=== PATIENT | male | born 1965 | race Caucasian/White ===

== ENCOUNTER 2017-04-15 22:25 | Inpatient (IN) | payer SELFPAY ==
[2017-04-15] MEDS ORDERED: Albuterol/Ipratropium 3.0-0.5 MG/3 ML Neb Soln NEB ONE (22:34)
[2017-04-15] MEDS ORDERED: Sodium Chloride 0.9% 2.5 ML Syringe FLUSH PRN ×2 (22:35)
[2017-04-15] MEDS ORDERED: Sodium Chloride 0.9% 10 ML Syringe FLUSH PRN (22:35)
--- NOTE | 2017-04-15 22:36 | EDM.PDOC ---
ED HPI GENERAL MEDICAL PROBLEM - General Chief Complaint: Respiratory Problem Stated Complaint: RESPIRATORY DISTRESS Time Seen by Provider: 04/15/17 22:33 - History of Present Illness INITIAL COMMENTS - FREE TEXT/NARRATIVE: HISTORY AND PHYSICAL: History of present illness: Patient is 51-year-old white male with history of COPD who is continues to smoke or sensory concern shortness of breath and wheezing worse over last 24 hours he denies chest pain nausea vomiting fever chills or other complaints. Review of systems: As per history of present illness and below otherwise all systems reviewed and negative. Past medical history: As per history of present illness and as reviewed below otherwise noncontributory. Surgical history: As per history of present illness and as reviewed below otherwise noncontributory. Social history: No reported history of drug or alcohol abuse. Family history: As per history of present illness and as reviewed below otherwise noncontributory. Physical exam: HEENT: Atraumatic, normocephalic, pupils reactive, negative for conjunctival pallor or scleral icterus, mucous membranes moist, throat clear, neck supple, nontender, trachea midline. Lungs: Scattered inspiratory and expiratory wheezing coarse breath sounds no crackles, breath sounds equal bilaterally, chest nontender. Heart: S1S2, regular, negative for clicks, rubs, or JVD. Abdomen: Soft, nondistended, nontender. Negative for masses or hepatosplenomegaly. Negative for costovertebral tenderness. Pelvis: Stable nontender. Genitourinary: Deferred. Rectal: Deferred. Extremities: Atraumatic, negative for cords or calf pain. Neurovascular unremarkable. Neuro: Awake, alert, oriented. Cranial nerves II through XII unremarkable. Cerebellum unremarkable. Motor and sensory unremarkable throughout. Exam nonfocal. Diagnostics: CBC CMP troponin PT/INR ABG chest x-ray EKG Therapeutics: O2 IV monitor albuterol ipratropium nebulizer Solu-Medrol 125 mg IV Impression: #1 COPD with acute exacerbation #2 medical noncompliance Definitive disposition and diagnosis as appropriate pending reevaluation and review of above. - Related Data Allergies Allergy/AdvReac Type Severity Reaction Status Date / Time cephalexin Allergy Hives Verified 04/15/17 22:33 Penicillins Allergy Hives Verified 04/15/17 22:33 Home Meds: Home Meds ClonazePAM [KlonoPIN] 0 mg PO BID 04/15/17 [History] ED ROS GENERAL - Review of Systems Review Of Systems: ROS reveals no pertinent complaints other than HPI. ED EXAM, GENERAL - Physical Exam Exam: See Below (See dictation) Course - Vital Signs Last Recorded V/S: Last Vital Signs Temp 36.6 C 04/15/17 22:25 Pulse 116 H 04/15/17 22:25 Resp 36 H 04/15/17 22:25 BP 144/99 H 04/15/17 22:25 Pulse Ox 97 04/15/17 22:25 - Orders/Labs/Meds Orders: Active Orders 24 hr Category Date Time Status EKG Documentation Completion [RC] STAT Care 04/15/17 22:35 Active RT Aerosol Therapy [RC] ASDIRECTED Care 04/15/17 22:34 Active Chest 1V Frontal [CR] Stat Exams 04/15/17 22:35 Ordered Sodium Chloride 0.9% [Saline Flush] Med 04/15/17 22:35 Active 10 ml FLUSH ASDIRECTED PRN Sodium Chloride 0.9% [Saline Flush] Med 04/15/17 22:35 Active 2.5 ml FLUSH ASDIRECTED PRN Saline Lock Insert [OM.PC] Stat Oth 04/15/17 22:35 Ordered Medication Orders Sodium Chloride (Saline Flush) 2.5 ml FLUSH ASDIRECTED PRN PRN Reason: Keep Vein Open Sodium Chloride (Saline Flush) 10 ml FLUSH ASDIRECTED PRN PRN Reason: Keep Vein Open Labs: Laboratory Tests 04/15/17 04/15/17 04/15/17 Range/Units 22:30 22:30 22:30 WBC 9.75 (4.0-11.0) K/uL RBC 5.35 (4.50-5.90) M/uL Hgb 15.7 (13.0-17.0) g/dL Hct 46.4 (38.0-50.0) % MCV 86.7 (80.0-98.0) fL MCH 29.3 (27.0-32.0) pg MCHC 33.8 (31.0-37.0) g/dL RDW Std Deviation 43.2 (28.0-62.0) fl RDW Coeff of Enoc 14 (11.0-15.0) % Plt Count 200 (150-400) K/uL MPV 10.00 (7.40-12.00) fL Neut % (Auto) 60.3 (48.0-80.0) % Lymph % (Auto) 27.8 (16.0-40.0) % [place] % (Auto) 7.3 (0.0-15.0) % Eos % (Auto) 4.0 (0.0-7.0) % Baso % (Auto) 0.6 (0.0-1.5) % Neut # (Auto) 5.9 H (1.4-5.7) K/uL Lymph # (Auto) 2.7 H (0.6-2.4) K/uL [place] # (Auto) 0.7 (0.0-0.8) K/uL Eos # (Auto) 0.4 (0.0-0.7) K/uL Baso # (Auto) 0.1 (0.0-0.1) K/uL Nucleated RBC % 0.0 /100WBC Nucleated RBCs # 0 K/uL INR 1.05 (0.86-1.11) ABG pH (7.35-7.45) ABG pCO2 (35-45) mmHG ABG pO2 (75-100) mmHG ABG HCO3 (22-26) mEq/L ABG Total CO2 ABG Base Excess (-2.0-2.0) Sodium 138 (136-146) mmol/L Potassium 3.7 (3.5-5.1) mmol/L Chloride 106 (98-110) mmol/L Carbon Dioxide 22 (21-31) mmol/L BUN 13 (6.0-23.0) mg/dL Creatinine 0.9 (0.6-1.5) mg/dL Est Cr Clr Drug Dosing TNP Estimated GFR (MDRD) > 60.0 ml/min Glucose 114 H (60-110) mg/dL Calcium 10.4 (8.8-10.8) mg/dL Total Bilirubin 0.3 (0.1-1.5) mg/dL AST 20 (5-40) IU/L ALT 26 (8-54) IU/L Alkaline Phosphatase 126 (40-150) Creatine Kinase 110 (9-236) IU/L Troponin I < 0.10 (0.0-0.29) NG/ML Total Protein 7.3 (6.0-8.0) g/dL Albumin 4.1 (3.5-5.0) g/dL Globulin 3.2 (2.0-3.5) g/dL Albumin/Globulin Ratio 1.3 (1.3-2.8) 04/15/ Range/Units 23:05 WBC (4.0-11.0) K/uL RBC (4.50-5.90) M/uL Hgb (13.0-17.0) g/dL Hct (38.0-50.0) % MCV (80.0-98.0) fL MCH (27.0-32.0) pg MCHC (31.0-37.0) g/dL RDW Std Deviation (28.0-62.0) fl RDW Coeff of Enoc (11.0-15.0) % Plt Count (150-400) K/uL MPV (7.40-12.00) fL Neut % (Auto) (48.0-80.0) % Lymph % (Auto) (16.0-40.0) % [place] % (Auto) (0.0-15.0) % Eos % (Auto) (0.0-7.0) % Baso % (Auto) (0.0-1.5) % Neut # (Auto) (1.4-5.7) K/uL Lymph # (Auto) (0.6-2.4) K/uL [place] # (Auto) (0.0-0.8) K/uL Eos # (Auto) (0.0-0.7) K/uL Baso # (Auto) (0.0-0.1) K/uL Nucleated RBC % /100WBC Nucleated RBCs # K/uL INR (0.86-1.11) ABG pH 7.358 (7.35-7.45) ABG pCO2 43 (35-45) mmHG ABG pO2 108 H (75-100) mmHG ABG HCO3 24 (22-26) mEq/L ABG Total CO2 21.1 ABG Base Excess -1.6 (-2.0-2.0) Sodium (136-146) mmol/L Potassium (3.5-5.1) mmol/L Chloride (98-110) mmol/L Carbon Dioxide (21-31) mmol/L BUN (6.0-23.0) mg/dL Creatinine (0.6-1.5) mg/dL Est Cr Clr Drug Dosing Estimated GFR (MDRD) ml/min Glucose (60-110) mg/dL Calcium (8.8-10.8) mg/dL Total Bilirubin (0.1-1.5) mg/dL AST (5-40) IU/L ALT (8-54) IU/L Alkaline Phosphatase (40-150) Creatine Kinase (9-236) IU/L Troponin I (0.0-0.29) NG/ML Total Protein (6.0-8.0) g/dL Albumin (3.5-5.0) g/dL Globulin (2.0-3.5) g/dL Albumin/Globulin Ratio (1.3-2.8) Meds: Medications Generic Name Dose Route Start Last Admin Trade Name Freq PRN Reason Stop Dose Admin Sodium Chloride 2.5 ml 04/15/17 22:35 Saline Flush FLUSH ASDIRECTED PRN Keep Vein Open Sodium Chloride 10 ml 04/15/17 22:35 Saline Flush FLUSH ASDIRECTED PRN Keep Vein Open Discontinued Medications Generic Name Dose Route Start Last Admin Trade Name Freq PRN Reason Stop Dose Admin Albuterol/Ipratropium 3 ml 04/15/17 22:34 04/15/17 22:38 Duoneb 3.0-0.5 Mg/3 Ml NEB 04/15/17 22:35 3 ml ONETIME ONE Administration Methylprednisolone Sodium Succinate 125 mg 04/15/17 22:45 Solu-Medrol IV STAT COREY Methylprednisolone Sodium Succinate 125 mg 04/15/17 22:45 04/15/17 23:04 Solu-Medrol IV 04/15/17 22:46 125 mg NOW ONE Administration Sodium Chloride 2.5 ml 04/15/17 22:35 Saline Flush FLUSH ASDIRECTED PRN Keep Vein Open Departure - Departure Time of Disposition: 22:59 Disposition: Refer to Observation Condition: Good Clinical Impression: COPD with acute exacerbation - Discharge Information Referrals: PCP,None [Primary Care Provider] - Forms: ED Department Discharge - My Orders Last 24 Hours: My Active Orders 04/15/17 22:34 RT Aerosol Therapy [RC] ASDIRECTED 04/15/17 22:35 EKG Documentation Completion [RC] STAT Chest 1V Frontal [CR] Stat Sodium Chloride 0.9% [Saline Flush] 10 ml FLUSH ASDIRECTED PRN Sodium Chloride 0.9% [Saline Flush] 2.5 ml FLUSH ASDIRECTED PRN Saline Lock Insert [OM.PC] Stat - Assessment/Plan Last 24 Hours: My Active Orders 04/15/17 22:34 RT Aerosol Therapy [RC] ASDIRECTED 04/15/17 22:35 EKG Documentation Completion [RC] STAT Chest 1V Frontal [CR] Stat Sodium Chloride 0.9% [Saline Flush] 10 ml FLUSH ASDIRECTED PRN Sodium Chloride 0.9% [Saline Flush] 2.5 ml FLUSH ASDIRECTED PRN Saline Lock Insert [OM.PC] Stat
[2017-04-15] MEDS ORDERED: methylPREDNISolone Sodium Succinate 125 MG/2 ML SDV IV ONE (22:45)
[2017-04-15] MEDS ORDERED: methylPREDNISolone Sodium Succinate 1,000 MG/8 ML SDV IV SCH (22:45)
[2017-04-15 23:07] LABS: CHLORIDE,CL 106 mmol/L (98-110); SODIUM,NA 138 mmol/L (136-146)
[2017-04-16] MEDS: Albuterol/Ipratropium 3.0-0.5 MG/3 ML Neb Soln NEB SCH ×6 (00:49→21:49)
[2017-04-16] MEDS: Nicotine 14 MG/24 Hr Patch TRDERM SCH (03:21)
[2017-04-16] MEDS: methylPREDNISolone Sodium Succinate 125 MG/2 ML SDV IVPUSH SCH ×4 (05:06→23:37)
[2017-04-16 06:39] LABS: CHLORIDE,CL 108 mmol/L (98-110); SODIUM,NA 137 mmol/L (136-146)
[2017-04-16] MEDS ORDERED: FLU Vacc QS 2017-18 (36mos UP)/PF 60 MCG/0.5 ML Syringe IM ONE (06:45)
--- NOTE | 2017-04-16 07:52 | PCM.HP ---
H&P History of Present Illness - General Date of Service: 04/16/17 Admit Problem/Dx: Admission Diagnosis/Problem Admission Diagnosis/Problem COPD, Moderate chronic obstructive pulmonary disease Source of Information: Patient History Limitations: Reports: No Limitations - History of Present Illness Initial Comments - Free Text/Narative: This 51 year old male with pmh of tobacco use and COPD presented to the ED early this morning with worsening dyspnea. He reports this dyspnea started once the weather changed to be colder, but last day or so it worsened significantly. He denies fevers or chills, sore throat or sinus congestion. He reports "rattling in his chest" congestion, but unable to produce a sputum. No N/V, abdominal pain, chest pain or palpitations. No diarrhea or constipation and no black or bloody BMs. He reports some anxiety with SOB, and takes half tab Klonipin for this. He reports he has not received his influenza vaccine yet this year and obtianed pneumovax last year. His PCP is in [place], [place] and did at one time follow with a hand or machine paster, but hasn't in about 2 years, he has needed to arrange appointment with a new provider, but hasn't yet. He does continue to smoke about 1/2-1 ppd he did quit for some time and then restarted not to long ago. In the ED WBC 9,750, ABG WNL, BMP WNL, dyspneic and tachypneic at 30-35 RR with tachycardia in 115s. CXR reveals hyperinflated lungs likely COPD, hazy opacification of the lung bases with blunting of costophrenis sulci, possinle small pleural effusion, possible faint basilar infiltrate or bronchitis can not be excluded. He was treated with Duonebs, SOlumedrol. He was admitted for COPD exacerbation. Chest Pain Score (Numeric/FACES): 0 - Related Data Allergies/Adverse Reactions: Allergies Allergy/AdvReac Type Severity Reaction Status Date / Time cephalexin Allergy Hives Verified 04/15/17 22:33 Penicillins Allergy Hives Verified 04/15/17 22:33 Home Medications: Home Meds ClonazePAM [KlonoPIN] 0 mg PO BID 04/15/17 [History] Albuterol Sulfate 1 vial INH QID 04/16/17 [History] Budesonide/Formoterol [Symbicort 80-4.5 MCG] 1 puff INH BID 04/16/17 [History] Ipratropium/Albuterol Sulfate [Combivent Respimat Inhal [place]] 4 gm IH PRN 04/16 [History] Past Medical History - Past Health History Medical/Surgical History: Denies Medical/Surgical History Cardiovascular History: Denies: Afib, Blood Clots/VTE/DVT, CAD, High Cholesterol , Hypertension, NH Respiratory History: Reports: COPD Gastrointestinal History: Reports: None. Denies: Cholelithiasis, Diverticulosis , GERD, GI Bleed Genitourinary History: Reports: None. Denies: Acute Renal Failure, Chronic Renal Insuffiency Musculoskeletal History: Reports: None Neurological History: Denies: CVA, Migraines, TIA Psychiatric History: Reports: Anxiety (with dyspnea) Endocrine/Metabolic History: Denies: Diabetes, Type II - Infectious Disease History Infectious Disease History: Reports: Chicken Pox - Past Surgical History Respiratory Surgical History: Reports: None Dermatological Surgical History: Reports: Skin Graft Social & Family History - Family History Family Medical History: Noncontributory - Tobacco Use Smoking Status *Q: Current Every Day Smoker Years of Tobacco use: 30 Packs/Tins Daily: 1 Tobacco Use Comment: Patient voices quitting and starting up smoking again. Second Hand Smoke Exposure: No - Caffeine Use Caffeine Use: Reports: Soda - Recreational Drug Use Recreational Drug Use: No - Living Situation & Occupation Living situation: Reports: Other (Homes in [place], living here in [place] for work.) Occupation: Employed H&P Review of Systems - Review of Systems: Review Of Systems: See Below General: Reports: No Symptoms. Denies: Fever, Chills, Malaise HEENT: Reports: No Symptoms. Denies: Headaches, Sinus Congestion, Sore Throat, Vertigo, Visual Changes Pulmonary: Reports: Shortness of Breath, Wheezing. Denies: Cough, Sputum, Hemoptysis Cardiovascular: Reports: No Symptoms, Chest Pain. Denies: Dyspnea on Exertion, Orthopnea, Lightheadedness, Syncope Gastrointestinal: Reports: No Symptoms. Denies: Abdominal Pain, Black Stool, Bloody Stool, Nausea, Vomiting Genitourinary: Reports: No Symptoms. Denies: Dysuria, Frequency, Burning, Pain Musculoskeletal: Reports: No Symptoms Skin: Reports: No Symptoms Psychiatric: Reports: No Symptoms Neurological: Reports: No Symptoms Hematologic/Lymphatic: Reports: No Symptoms Immunologic: Reports: No Symptoms Exam - Exam Exam: See Below - Vital Signs Vital Signs: Last Vital Signs Temp 98 F 04/16/17 03:23 Pulse 89 04/16/17 03:23 Resp 18 04/16/17 03:23 BP 130/81 04/16/17 03:23 Pulse Ox 98 04/16/17 03:23 Weight: 66.4 kg - Exam Quality Assessment: Supplemental Oxygen, DVT Prophylaxis General: Alert, Oriented, Cooperative HEENT: Conjunctiva Clear, Mucosa Moist & [place], Nares Patent, Pupils Reactive Neck: Supple, Trachea Midline, 2 Lungs: Decreased Breath Sounds (bilateral bases, very tight sounding, no wheezing noted.). No: Normal Respiratory Effort (tachypnea noted, he reports feeling better.), Wheezing Cardiovascular: Regular Rate, Regular Rhythm, Normal S1, Normal S2 Extremities: Normal Inspection, Normal Range of Motion, Non-Tender, No Pedal Edema, Normal Capillary Refill Neuro Extensive - Mental Status: Alert, Oriented x3, Normal Mood/Affect, Normal Cognition Psychiatric: Alert, Normal Affect, Normal Mood - Patient Data Lab Results Last 24 hrs: Laboratory Results - last 24 hr 04/16/17 04/16/17 Range/Units 06:08 06:08 WBC 9.24 (4.0-11.0) K/uL RBC 5.28 (4.50-5.90) M/uL Hgb 15.5 (13.0-17.0) g/dL Hct 45.7 (38.0-50.0) % MCV 86.6 (80.0-98.0) fL MCH 29.4 (27.0-32.0) pg MCHC 33.9 (31.0-37.0) g/dL RDW Std Deviation 43.7 (28.0-62.0) fl RDW Coeff of Enoc 14 (11.0-15.0) % Plt Count 215 (150-400) K/uL MPV 10.10 (7.40-12.00) fL Neut % (Auto) 92.5 H (48.0-80.0) % Lymph % (Auto) 7.1 L (16.0-40.0) % [place] % (Auto) 0.3 (0.0-15.0) % Eos % (Auto) 0.0 (0.0-7.0) % Baso % (Auto) 0.1 (0.0-1.5) % Neut # (Auto) 8.5 H (1.4-5.7) K/uL Lymph # (Auto) 0.7 (0.6-2.4) K/uL [place] # (Auto) 0.0 (0.0-0.8) K/uL Eos # (Auto) 0.0 (0.0-0.7) K/uL Baso # (Auto) 0.0 (0.0-0.1) K/uL Nucleated RBC % 0.0 /100WBC Nucleated RBCs # 0 K/uL Sodium 137 (136-146) mmol/L Potassium 4.6 (3.5-5.1) mmol/L Chloride 108 (98-110) mmol/L Carbon Dioxide 22 (21-31) mmol/L BUN 11 (6.0-23.0) mg/dL Creatinine 0.8 (0.6-1.5) mg/dL Est Cr Clr Drug Dosing 102.60 mL/min Estimated GFR (MDRD) > 60.0 ml/min Glucose 151 H (60-110) mg/dL Calcium 10.7 (8.8-10.8) mg/dL Result Diagrams: 04/16/17 06:08 04/16/17 06:08 *Q Meaningful Use (ADM) - VTE *Q VTE Criteria *Q: - Stroke *Q Stroke Criteria *Q: - AMI *Q AMI Criteria *Q: - Problem List (1) COPD with acute exacerbation SNOMED Code(s): 777067543 ICD Code: J44.1 - CHRONIC OBSTRUCTIVE PULMONARY DISEASE W (ACUTE) EXACERBATION Status: Acute Current Visit: Yes (2) Tobacco abuse SNOMED Code(s): 725261633 ICD Code: Z72.0 - TOBACCO USE Status: Chronic Current Visit: Yes Problem List Initiated/Reviewed/Updated: Yes Orders Last 24hrs: Active Orders 24 hr Category Date Time Status RT Aerosol Therapy [RC] ASDIRECTED Care 04/16/17 00:39 Active Regular Diet [DIET] Diet 04/16/17 Breakfast Active Albuterol/Ipratropium [DuoNeb 3.0-0.5 MG/3 ML] Med 04/16/17 00:39 Active 3 ml NEB Q6HRRT Nicotine [Habitrol] Med 04/16/17 03:00 Active 14 mg TRDERM DAILY methylPREDNISolone Sod Succ [Solu-MEDROL] Med 04/16/17 05:00 Active 125 mg IVPUSH Q6H Medication Orders Albuterol/Ipratropium (Duoneb 3.0-0.5 Mg/3 Ml) 3 ml NEB Q6HRRT [facility] Last Admin: 04/16/17 07:11 Dose: Not Given Admin: 04/16/17 00:49 Dose: Methylprednisolone Sodium Succinate (Solu-Medrol) 125 mg IVPUSH Q6H [facility] Last Admin: 04/16/17 05:06 Dose: 125 mg Nicotine (Habitrol) 14 mg TRDERM DAILY [facility] Last Admin: 04/16/17 03:21 Dose: 14 mg Sodium Chloride (Saline Flush) 2.5 ml FLUSH ASDIRECTED PRN PRN Reason: Keep Vein Open Sodium Chloride (Saline Flush) 10 ml FLUSH ASDIRECTED PRN PRN Reason: Keep Vein Open Assessment/Plan Comment:: This 51 year old male admitted with acute COPD exacerbation 1. COPD exacerbation: Continue SOlumderol 125 mg IV Q6hr, Duonebs, and albuterol PRN as needed. Oxygen PRN, wean to keep sats >88%. I will also order Levaquin 750 mg IV daily due to questionable infiltrate vs bronchitis on CXR. Nicotine patch ordered. Spoke with him for 5 minutes regarding importance of smoking cessation and he verbally agreed, reporting many family and friends urger him on a daily basis to quit knowing his lung status. Will continue Klonopin for anxiety PRN. VTE prophylaxis: Lovenox. Dispo: 2-3 days pending improvement.
[2017-04-16] MEDS ORDERED: Ondansetron 4 MG/2 ML SDV IVPUSH PRN (09:24)
[2017-04-16] MEDS ORDERED: Albuterol 0.083% 2.5 MG/3 ML Neb Soln NEB PRN (09:24)
[2017-04-16] MEDS ORDERED: Acetaminophen 325 MG Tab PO PRN (09:24)
[2017-04-16] MEDS: Levofloxacin/Dextrose 5%-Water 750 MG in Premix Bag 1 BAG IV SCH (09:54)
[2017-04-16] MEDS: Enoxaparin 40 MG/0.4 ML Syringe SUBCUT SCH (09:59)
--- NOTE | 2017-04-16 14:25 | CR ---
EXAM DATE: 04/15/17 PATIENT'S AGE: 51 Patient: ANDRZEJ REDDY Facility: [place], [place] Site . Site : [id number] Study: XRay Chest [id number] 11:43:08 PM Ordering Physician: Cesar Casey Final Report: INDICATION: Dyspnea. TECHNIQUE: Chest radiograph 1 view COMPARISON: None FINDINGS: Portable AP upright chest dated 04/15/2017 at 11:37 p.m. Lungs are mildly hyperinflated. Likely small bilateral pleural effusions, right greater than left. Emphysematous changes in the upper lung zones. No focal airspace consolidation. Heart and mediastinal contours are within normal limits. IMPRESSION: 1. Hyperinflated lungs with likely COPD. Hazy opacification of the lung bases with blunting of costophrenic sulci, consider small pleural effusions. Possible faint basilar infiltrate or bronchitis not excluded. Dictated by Tyrell Clemente MD @ 04/15/2017 11:50:30 PM Dictated by: Tyrell Clemente MD @ 04/15/2017 23:50:38 (Electronic Signature) Report Signed by Proxy. [facility]
[2017-04-16] MEDS: BUDESONIDE INH SCH (21:00)
[2017-04-16] MEDS: FORMOTEROL INH SCH (21:00)
[2017-04-17] MEDS: Albuterol/Ipratropium 3.0-0.5 MG/3 ML Neb Soln NEB SCH ×6 (02:03→21:34)
[2017-04-17] MEDS: methylPREDNISolone Sodium Succinate 125 MG/2 ML SDV IVPUSH SCH ×3 (04:42→20:51)
[2017-04-17 05:26] LABS: CHLORIDE,CL 107 mmol/L (98-110); SODIUM,NA 138 mmol/L (136-146)
[2017-04-17] MEDS: Enoxaparin 40 MG/0.4 ML Syringe SUBCUT SCH (09:00)
[2017-04-17] MEDS: Nicotine 14 MG/24 Hr Patch TRDERM SCH (09:07)
[2017-04-17] MEDS: Levofloxacin/Dextrose 5%-Water 750 MG in Premix Bag 1 BAG IV SCH (09:11)
--- NOTE | 2017-04-17 10:00 | PCM.PN ---
- General Info Date of Service: 04/17/17 Admission Dx/Problem (Free Text): Admission Diagnosis/Problem Admission Diagnosis/Problem COPD, Moderate chronic obstructive pulmonary disease Subjective Update: Feeling somewhat better today, little wheezing, has been weaned of oxygen. No chest pain. Some dypsnea with ambulation. Congested cough, non-productive. Functional Status: Reports: Pain Controlled, Tolerating Diet, Ambulating, Urinating - Review of Systems General: Reports: No Symptoms. Denies: Fever Pulmonary: Reports: Shortness of Breath, Cough. Denies: Sputum, Hemoptysis, Wheezing Cardiovascular: Denies: Chest Pain, Lightheadedness Gastrointestinal: Reports: No Symptoms. Denies: Abdominal Pain, Nausea, Vomiting Genitourinary: Reports: No Symptoms. Denies: Dysuria, Frequency, Burning Neurological: Reports: No Symptoms Psychiatric: Reports: No Symptoms - Patient Data Vitals - Most Recent: Last Vital Signs Temp 98.1 F 04/17/17 08:00 Pulse 105 H 04/17/17 08:00 Resp 18 04/17/17 08:00 BP 109/60 04/17/17 08:00 Pulse Ox 94 L 04/17/17 08:00 Weight - Most Recent: 66.4 kg Med Orders - Current: Current Medications Acetaminophen (Tylenol) 650 mg PO Q4H PRN PRN Reason: Pain Albuterol (Proventil Neb Soln) 2.5 mg NEB Q2H PRN PRN Reason: Shortness Of Breath/wheezing Albuterol/Ipratropium (Duoneb 3.0-0.5 Mg/3 Ml) 3 ml NEB Q4HRRT [facility] Last Admin: 04/17/17 06:43 Dose: Not Given Enoxaparin Sodium (Lovenox) 40 mg SUBCUT DAILY [facility] Last Admin: 04/16/17 09:59 Dose: 40 mg Levofloxacin/Dextrose 750 mg/ (Premix) 150 mls @ 100 mls/hr IV Q24H [facility] Last Admin: 04/17/17 09:11 Dose: 100 mls/hr Nicotine (Habitrol) 14 mg TRDERM DAILY [facility] Last Admin: 04/17/17 09:07 Dose: 14 mg Ondansetron HCl (Zofran) 4 mg IVPUSH Q4H PRN PRN Reason: Nausea Budesonide/ (Formoterol 1 Puff) 1 each INH BID [facility] Last Admin: 04/16/17 21:00 Dose: Not Given Sodium Chloride (Saline Flush) 2.5 ml FLUSH ASDIRECTED PRN PRN Reason: Keep Vein Open Sodium Chloride (Saline Flush) 10 ml FLUSH ASDIRECTED PRN PRN Reason: Keep Vein Open Discontinued Medications Albuterol/Ipratropium (Duoneb 3.0-0.5 Mg/3 Ml) 3 ml NEB ONETIME ONE Stop: 04/15/17 22:35 Last Admin: 04/15/17 22:38 Dose: 3 ml Albuterol/Ipratropium (Duoneb 3.0-0.5 Mg/3 Ml) 3 ml NEB Q6HRRT [facility] Last Admin: 04/16/17 07:11 Dose: Not Given Influenza Virus Vaccine (Fluarix Quad [id number]) 60 mcg IM .ONCE ONE Stop: 04/16/17 06:46 Last Admin: 04/16/17 17:24 Dose: 60 mcg Methylprednisolone Sodium Succinate (Solu-Medrol) 125 mg IV STAT [facility] Methylprednisolone Sodium Succinate (Solu-Medrol) 125 mg IV NOW ONE Stop: 04/15/17 22:46 Last Admin: 04/15/17 23:04 Dose: 125 mg Methylprednisolone Sodium Succinate (Solu-Medrol) 125 mg IVPUSH Q6H [facility] Last Admin: 04/17/17 04:42 Dose: 125 mg Sodium Chloride (Saline Flush) 2.5 ml FLUSH ASDIRECTED PRN PRN Reason: Keep Vein Open - Exam General: Alert, Oriented, Cooperative, No Acute Distress HEENT: Pupils Equal, Pupils Reactive, EOMI, Mucous Membr. Moist/[place] Neck: Supple Lungs: Decreased Breath Sounds (to bilateral bases). No: Normal Respiratory Effort (dyspnea noted, intermittently), Rhonchi, Wheezing Cardiovascular: Regular Rate, Regular Rhythm Extremities: Normal Inspection, Normal Range of Motion, Non-Tender, No Pedal Edema, Normal Capillary Refill Neurological: No New Focal Deficit Psy/Mental Status: Alert, Normal Affect, Normal Mood - Problem List & Annotations (1) COPD with acute exacerbation SNOMED Code(s): 664320917 Code(s): J44.1 - CHRONIC OBSTRUCTIVE PULMONARY DISEASE W (ACUTE) EXACERBATION Status: Acute Current Visit: Yes (2) Tobacco abuse SNOMED Code(s): 393316564 Code(s): Z72.0 - TOBACCO USE Status: Chronic Current Visit: Yes - Problem List Review Problem List Initiated/Reviewed/Updated: Yes - My Orders Last 24 Hours: My Active Orders 04/17/17 13:00 methylPREDNISolone Sod Succ [Solu-MEDROL] 125 mg IVPUSH Q8H - Plan Plan:: This 51 year old male admitted with acute COPD exacerbation 1. COPD exacerbation: Improving, will decrease Solumderol 125 mg IV to Q8hr, Duonebs, and albuterol PRN as needed. Oxygen PRN, wean to keep sats >88%. Continue Levaquin 750 mg IV daily due to questionable infiltrate vs bronchitis on CXR. Nicotine patch ordered. Will continue Klonopin for anxiety PRN. VTE prophylaxis: Lovenox. Dispo: possible DC in am.
[2017-04-17] MEDS: FORMOTEROL INH SCH ×2 (11:01→22:05)
[2017-04-17] MEDS: BUDESONIDE INH SCH ×2 (11:01→22:05)
[2017-04-18] MEDS: Albuterol/Ipratropium 3.0-0.5 MG/3 ML Neb Soln NEB SCH ×3 (01:02→09:55)
[2017-04-18] MEDS: methylPREDNISolone Sodium Succinate 125 MG/2 ML SDV IVPUSH SCH (05:31)
[2017-04-18 05:43] LABS: CHLORIDE,CL 108 mmol/L (98-110); SODIUM,NA 140 mmol/L (136-146)
[2017-04-18] MEDS: Enoxaparin 40 MG/0.4 ML Syringe SUBCUT SCH (08:39)
[2017-04-18] MEDS: Levofloxacin/Dextrose 5%-Water 750 MG in Premix Bag 1 BAG IV SCH (08:40)
[2017-04-18] MEDS: Nicotine 14 MG/24 Hr Patch TRDERM SCH (08:40)
[2017-04-18] MEDS: FORMOTEROL INH SCH (08:50)
[2017-04-18] MEDS: BUDESONIDE INH SCH (08:50)
--- NOTE | 2017-04-18 09:49 | PCM.DCSUM1 ---
Discharge Summary - Hospital Course Brief History: This 51 year old male with pmh of tobacco use and COPD presented to the ED with worsening dyspnea. He reports this dyspnea started once the weather changed to be colder, but last day or so it worsened significantly. He denies fevers or chills, sore throat or sinus congestion. He reports "rattling in his chest" congestion, but unable to produce a sputum. No N/V, abdominal pain , chest pain or palpitations. No diarrhea or constipation and no black or bloody BMs. He reports some anxiety with SOB, and takes half tab Klonipin for this. He reports he has not received his influenza vaccine yet this year and obtianed pneumovax last year. His PCP is in [place], [place] and did at one time follow with a co director, but hasn't in about 2 years, he has needed to arrange appointment with a new provider, but hasn't yet. He does continue to smoke about 1/2-1 ppd he did quit for some time and then restarted not to long ago. In the ED WBC 9,750, ABG WNL, BMP WNL, dyspneic and tachypneic at 30-35 RR with tachycardia in 115s. CXR reveals hyperinflated lungs likely COPD, hazy opacification of the lung bases with blunting of costophrenis sulci, possinle small pleural effusion, possible faint basilar infiltrate or bronchitis can not be excluded. He was treated with Duonebs, SOlumedrol. He was admitted for COPD exacerbation. - Discharge Data Discharge Date: 04/18/17 Discharge Disposition: Home, Self-Care 01 Condition: Good - Discharge Diagnosis/Problem(s) (1) COPD with acute exacerbation SNOMED Code(s): 395649550 ICD Code: J44.1 - CHRONIC OBSTRUCTIVE PULMONARY DISEASE W (ACUTE) EXACERBATION Status: Acute Current Visit: Yes (2) Tobacco abuse SNOMED Code(s): 421429959 ICD Code: Z72.0 - TOBACCO USE Status: Chronic Current Visit: Yes - Patient Instructions Diet: Regular Diet as Tolerated Activity: As Tolerated Showering/Bathing: May Shower Notify Provider of: Fever, Increased Pain, Swelling and Redness, Drainage, Nausea and/or Vomiting - Discharge Plan Prescriptions/Med Rec: Levofloxacin [Levaquin] 750 mg PO DAILY #4 tablet Prednisone [IJD: Prednisone] 10 mg PO DAILY #30 tab Home Medications: Home Meds ClonazePAM [KlonoPIN] 0 mg PO BID 04/15/17 [History] Budesonide/Formoterol Fumarate [Symbicort 160-4.5 Mcg Inhaler] 2 puff IH BID 11/25 [History] Ipratropium/Albuterol Sulfate [Combivent Respimat Inhal [place]] 1 puff IH Q4H PRN 04/16/17 [History] Ipratropium/Albuterol Sulfate [IJD: DuoNeb 3.0-0.5 MG/3 ML] 1 vial NEB Q2H PRN 04/16/17 [History] Ipratropium/Albuterol Sulfate [IJD: DuoNeb 3.0-0.5 MG/3 ML] 1 vial NEB QID 04/16 [History] Levofloxacin [Levaquin] 750 mg PO DAILY #4 tablet 04/18/17 [Rx] Prednisone [IJD: Prednisone] 10 mg PO DAILY #30 tab 04/18/17 [Rx] Patient Handouts: Chronic Obstructive Pulmonary Disease Exacerbation, Easy-to- Read, Levofloxacin tablets, Prednisone tablets Referrals: PCP,None [Primary Care Provider] - (Follow-up with your primary care provider.) - Discharge Summary/Plan Comment DC Time >30 min.: No Discharge Summary/Plan Comment: Discharge Diagnoses: COPD exacerbation CAP smoker Noe was admitted and treated with IV Solumedrol and Duonebs for COPD exacebration CXR was questionable with possible infiltrate, so Levaquin was added for CAP. He has done well and dyspnea improved. He is off oxygen and ambulating well without significant SOB. He will be treated with Prednisone taper and Levaquin for 4 more days. he is to follow up with PCP in [place], [place] next week. He plans to head home today or tomorrow. He is to return to clinic next week. He is to return to ED or clinic if concerns should arise. He is to continue taking his home inhalers as previously prescribed. Again, smoking cessation was highly encouraged. - General Info Date of Service: 04/18/17 Admission Dx/Problem (Free Text: Admission Diagnosis/Problem Admission Diagnosis/Problem COPD, Moderate chronic obstructive pulmonary disease Subjective Update: Feeling much better today, continues to have dry non productive cough. No chest pain no worsening SOB. SOB is near baseline. He was up ambulating to cafeteria yesterday and back and felt good. Functional Status: Reports: Pain Controlled - Review of Systems General: Reports: No Symptoms. Denies: Fever HEENT: Reports: No Symptoms. Denies: Headaches, Sore Throat Pulmonary: Reports: Shortness of Breath (intermittent, but at baseline), Cough. Denies: Pleuritic Chest Pain, Sputum, Hemoptysis, Wheezing Cardiovascular: Reports: No Symptoms. Denies: Chest Pain, Edema Gastrointestinal: Reports: No Symptoms. Denies: Abdominal Pain, Nausea, Vomiting Genitourinary: Reports: No Symptoms. Denies: Dysuria, Frequency, Burning Neurological: Reports: No Symptoms. Denies: Confusion - Patient Data Vitals - Most Recent: Last Vital Signs Temp 98.1 F 04/18/17 08:00 Pulse 89 04/18/17 08:00 Resp 20 04/18/17 08:00 BP 107/64 04/18/17 08:00 Pulse Ox 95 04/18/17 08:00 Weight - Most Recent: 66.4 kg I&O - Last 24 hours: Intake & Output 04/17/17 04/18/17 04/18/17 22:59 06:59 14:59 Intake Total 950 500 Output Total 500 1245 Balance 450 -745 Lab Results - Last 24 hrs: Laboratory Results - last 24 hr 04/18/17 04/18/17 Range/Units 04:43 04:43 WBC 18.69 H (4.0-11.0) K/uL RBC 5.03 (4.50-5.90) M/uL Hgb 14.6 (13.0-17.0) g/dL Hct 43.7 (38.0-50.0) % MCV 86.9 (80.0-98.0) fL MCH 29.0 (27.0-32.0) pg MCHC 33.4 (31.0-37.0) g/dL RDW Std Deviation 44.9 (28.0-62.0) fl RDW Coeff of Enoc 14 (11.0-15.0) % Plt Count 232 (150-400) K/uL MPV 10.50 (7.40-12.00) fL Neut % (Auto) 93.5 H (48.0-80.0) % Lymph % (Auto) 3.2 L (16.0-40.0) % [place] % (Auto) 3.2 (0.0-15.0) % Eos % (Auto) 0.0 (0.0-7.0) % Baso % (Auto) 0.1 (0.0-1.5) % Neut # (Auto) 17.5 H (1.4-5.7) K/uL Lymph # (Auto) 0.6 (0.6-2.4) K/uL [place] # (Auto) 0.6 (0.0-0.8) K/uL Eos # (Auto) 0.0 (0.0-0.7) K/uL Baso # (Auto) 0.0 (0.0-0.1) K/uL Nucleated RBC % 0.0 /100WBC Nucleated RBCs # 0 K/uL Sodium 140 (136-146) mmol/L Potassium 4.2 (3.5-5.1) mmol/L Chloride 108 (98-110) mmol/L Carbon Dioxide 24 (21-31) mmol/L BUN 17 (6.0-23.0) mg/dL Creatinine 0.8 (0.6-1.5) mg/dL Est Cr Clr Drug Dosing 102.60 mL/min Estimated GFR (MDRD) > 60.0 ml/min Glucose 151 H (60-110) mg/dL Calcium 10.6 (8.8-10.8) mg/dL Med Orders - Current: Current Medications Acetaminophen (Tylenol) 650 mg PO Q4H PRN PRN Reason: Pain Albuterol (Proventil Neb Soln) 2.5 mg NEB Q2H PRN PRN Reason: Shortness Of Breath/wheezing Albuterol/Ipratropium (Duoneb 3.0-0.5 Mg/3 Ml) 3 ml NEB Q4HRRT [facility] Last Admin: 04/18/17 06:35 Dose: Not Given Enoxaparin Sodium (Lovenox) 40 mg SUBCUT DAILY [facility] Last Admin: 04/18/17 08:39 Dose: 40 mg Levofloxacin/Dextrose 750 mg/ (Premix) 150 mls @ 100 mls/hr IV Q24H [facility] Last Admin: 04/18/17 08:40 Dose: 100 mls/hr Methylprednisolone Sodium Succinate (Solu-Medrol) 125 mg IVPUSH Q8H [facility] Last Admin: 04/18/17 05:31 Dose: 125 mg Nicotine (Habitrol) 14 mg TRDERM DAILY [facility] Last Admin: 04/18/17 08:40 Dose: 14 mg Ondansetron HCl (Zofran) 4 mg IVPUSH Q4H PRN PRN Reason: Nausea Budesonide/ (Formoterol 1 Puff) 1 each INH BID [facility] Last Admin: 04/18/17 08:50 Dose: 1 each Sodium Chloride (Saline Flush) 2.5 ml FLUSH ASDIRECTED PRN PRN Reason: Keep Vein Open Sodium Chloride (Saline Flush) 10 ml FLUSH ASDIRECTED PRN PRN Reason: Keep Vein Open Discontinued Medications Albuterol/Ipratropium (Duoneb 3.0-0.5 Mg/3 Ml) 3 ml NEB ONETIME ONE Stop: 04/15/17 22:35 Last Admin: 04/15/17 22:38 Dose: 3 ml Albuterol/Ipratropium (Duoneb 3.0-0.5 Mg/3 Ml) 3 ml NEB Q6HRRT [facility] Last Admin: 04/16/17 07:11 Dose: Not Given Influenza Virus Vaccine (Fluarix Quad [id number]) 60 mcg IM .ONCE ONE Stop: 04/16/17 06:46 Last Admin: 04/16/17 17:24 Dose: 60 mcg Methylprednisolone Sodium Succinate (Solu-Medrol) 125 mg IV STAT [facility] Methylprednisolone Sodium Succinate (Solu-Medrol) 125 mg IV NOW ONE Stop: 04/15/17 22:46 Last Admin: 04/15/17 23:04 Dose: 125 mg Methylprednisolone Sodium Succinate (Solu-Medrol) 125 mg IVPUSH Q6H [facility] Last Admin: 04/17/17 04:42 Dose: 125 mg Sodium Chloride (Saline Flush) 2.5 ml FLUSH ASDIRECTED PRN PRN Reason: Keep Vein Open - Exam Quality Assessment: Reports: DVT Prophylaxis. Denies: Supplemental Oxygen General: Reports: Alert, Oriented, Cooperative, No Acute Distress Neck: Reports: Supple Lungs: Reports: Clear to Auscultation, Normal Respiratory Effort, Decreased Breath Sounds (diminished to bases, but has improved air flow today.). Denies: Rhonchi, Wheezing GI/Abdominal Exam: Normal Bowel Sounds, Soft, Non-Tender, No Organomegaly, No Distention, No Abnormal Bruit, No Mass, Pelvis Stable Extremities: Normal Inspection, Normal Range of Motion, Non-Tender, No Pedal Edema, Normal Capillary Refill Neurological: Reports: No New Focal Deficit Psy/Mental Status: Reports: Alert, Normal Affect, Normal Mood *Q Meaningful Use (DIS) - VTE *Q VTE Criteria *Q: - Stroke *Q Stroke Criteria *Q: - AMI *Q AMI Criteria *Q:
== END 2017-04-18 10:55 | disposition home or self-care (01) | DRG 140 ==
LOC: MW.ED 22:25 → MW.MS 23:32 → OBSVTOIN 04-17 09:30
PROVIDERS: ADMIT Internal Medicine; ATTEND Internal Medicine
DX: J44.1 Chronic obstructive pulmonary disease with (acute) exacerbation (principal); Z91.19 Patient's noncompliance with other medical treatment and regimen; F17.210 Nicotine dependence, cigarettes, uncomplicated
CPT/HCPCS: 36415; 36600; 71010; 71010-26; 80048; 80053; 82550; 82803; 84484; 85025; 85610; 90686; 93005; 94640; 96372; 96374; 96375; 96376; 99282; 99285-25; A9270-GY; G0008; G0378; J1650; J1956; J2930